=== PATIENT | female | born 1975 | race Caucasian/White ===

== ENCOUNTER 2016-10-07 | Emergency (ER) | payer SELFPAY ==
[~2016-10-07] MED LIST: LEVOTHROID75 MCG PO; NORCO 5-325 TA1 EACH PO; ULTRAM50 M1 PO
[2016-10-07] MEDS ORDERED: SYNTHROID88 MC1 PO (20:39)
== END 2016-10-07 23:03 ==
DX: G43.909 Migraine, unspecified, not intractable, without status migrainosus (principal); M54.9 Dorsalgia, unspecified; E07.9 Disorder of thyroid, unspecified; F17.200 Nicotine dependence, unspecified, uncomplicated; Z79.890 Hormone replacement therapy; Z79.899 Other long term (current) drug therapy